=== PATIENT | female | born 1990 | race Caucasian/White ===

== ENCOUNTER 2020-11-28 07:06 | Emergency (ER) | payer MEDICAID ==
[2020-11-28] MEDS ORDERED: ONDANSETRON 4 MG/2 ML VIAL IVP STA (07:20)
[2020-11-28] MEDS ORDERED: KETOROLAC 15 MG/ML VIAL IVP STA (07:20)
[2020-11-28] MEDS ORDERED: SODIUM CHLORIDE 0.9% 1,000 ML IV STA ×2 (07:20→08:38)
[2020-11-28 07:34] LABS: BASOPHILS # (AUTO) 0.1 10^3/uL (0.0-0.1); BASOPHILS % (AUTO) 0.7 %; EOSINOPHILS # (AUTO) 0.2 10^3/uL (0.0-0.7); EOSINOPHILS % (AUTO) 2.2 %; HCT - HEMATOCRIT 39.1 % (37.0-47.0); HGB - HEMOGLOBIN 13.2 g/dL (12.0-16.0); LYMPHOCYTES # (AUTO) 2.6 10^3/uL (1.5-3.5); MEAN CORPUSCULAR HEMOGLOBIN 31.1 pg (27.0-31.0); MEAN CORPUSCULAR HGB CONC 33.8 g/dL (32.0-36.0); MEAN PLATELET VOLUME 11.1 fL (7.9-10.8); MONOCYTES # (AUTO) 0.5 10^3/uL (0.0-1.0); MONOCYTES % (AUTO) 6.5 %; NEUTROPHILS % (AUTO) 54.1 %; PLT - PLATELET COUNT 257 10^3/uL (130-450); RED BLOOD COUNT 4.25 10^6/uL (4.20-5.40); RED CELL DISTRIBUTION WIDTH 11.9 % (12.0-15.0); WHITE BLOOD COUNT 7.3 x10^3/uL (4.8-10.8)
[2020-11-28] MEDS ORDERED: MORPHINE 2 MG/ML CARPUJECT IVP STA (07:35)
--- NOTE | 2020-11-28 07:38 | ED Physician Documentation ---
History of Present Illness - Stated complaint Stated Complaint: VOMMITING/RT SIDE PX - Chief complaint Chief Complaint: Back Pain - History obtained from History obtained from: Patient, Family (mother) - Additonal information Additional information: 29-year-old woman with past medical history of 3 kidney stones presents with similar symptoms today to her past stones. She developed right flank pain that is sharp, severe, radiating to the right lower quadrant starting around midnight with associated nonbloody nonbilious nausea and vomiting. She also feels lightheaded. Pain is constant, sudden onset. also with chills. denies urinary sx. she has an iud Review of Systems Ten Systems: 10 systems reviewed and negative Constitutional: reports: Chills, Myalgias Cardiac: denies: Chest pain / pressure Respiratory: denies: Dyspnea GI: reports: Abdominal Pain, Nausea, Vomiting Musculoskeletal: reports: Back pain PD PAST MEDICAL HISTORY - Past Surgical History Past Surgical History: Yes HEENT: Tonsil/Adenoidectomy - Present Medications Home Medications: Ambulatory Orders Medication Instructions Recorded Confirmed Cefpodoxime Proxetil [Vantin] 100 mg PO Q12H #20 tablet 11/28/20 Ketorolac [Toradol] 10 mg PO Q6H PRN #30 tablet 11/28/20 Ondansetron Odt [Zofran Odt] 4 mg TL Q6H PRN #10 tablet 11/28/20 Tamsulosin [Flomax] 0.4 mg PO DAILY 14 Days #14 tab 11/28/20 - Allergies Allergies/Adverse Reactions: Allergies Allergy/AdvReac Type Severity Reaction Status Date / Time codeine AdvReac Nausea Verified 11/28/20 07:15 - Social History Does the pt smoke?: No Smoking Status: Never smoker Does the pt drink ETOH?: No Does the pt have substance abuse?: No - Immunizations Immunizations are current?: Yes - POLST Patient has POLST: No PD ED PE NORMAL - Vitals Vital signs reviewed: Yes - General General: Alert and oriented X 3, Well developed/nourished, Other (moderate distress, wiggling in bed) - HEENT HEENT: Atraumatic, PERRL, EOMI - Neck Neck: Supple, no meningeal sign - Cardiac Cardiac: RRR - Respiratory Respiratory: No respiratory distress, Clear bilaterally - Abdomen Abdomen: Non tender, Non distended, Other (discomfort to suprapubic palpation) - Back Back: Other (R CVA ttp) - Derm Derm: Normal color, Warm and dry - Extremities Extremities: No deformity - Neuro Neuro: Alert and oriented X 3 - Psych Psych: Normal mood, Normal affect Results - Vitals Vitals: Vital Signs - 24 hr 11/28/20 07:12 Temperature 36.0 C L Heart Rate 96 Respiratory 20 Rate Blood Pressure 140/113 H O2 Saturation 100 Oxygen O2 Source Room air - Labs Labs: Laboratory Tests 11/28/20 11/28/20 11/28/20 07:25 07:25 07:40 WBC 7.3 RBC 4.25 Hgb 13.2 Hct 39.1 MCV 92.0 MCH 31.1 H MCHC 33.8 RDW 11.9 L Plt Count 257 MPV 11.1 H Neut # (Auto) 4.0 Lymph # (Auto) 2.6 [place] # (Auto) 0.5 Eos # (Auto) 0.2 Baso # (Auto) 0.1 Absolute Nucleated RBC 0.00 Nucleated RBC % 0.0 Sodium 139 Potassium 3.8 Chloride 106 Carbon Dioxide 24 Anion Gap 9.0 BUN 9 Creatinine 0.8 Estimated GFR (MDRD) 86 L Glucose 143 H Calcium 9.0 Total Bilirubin 0.3 AST 22 ALT 19 Alkaline Phosphatase 67 Total Protein 7.9 Albumin 4.5 Globulin 3.4 Albumin/Globulin Ratio 1.3 Lipase 27 Urine Color YELLOW Urine Clarity HAZY Urine pH 7.0 Ur Specific [place] 1.025 Urine Protein NEGATIVE Urine Glucose (UA) NEGATIVE Urine Ketones NEGATIVE Urine Occult Blood LARGE H Urine Nitrite NEGATIVE Urine Bilirubin NEGATIVE Urine Urobilinogen 0.2 (NORMAL) Ur Leukocyte Esterase SMALL H Urine RBC TNTC H Urine WBC 4-5 Ur Squamous Epith Cells MANY Squamous H Urine Bacteria Moderate H Ur Microscopic Review INDICATED Urine Culture Comments NOT INDICATED Urine HCG, Qual 11/28/20 07:40 WBC RBC Hgb Hct MCV MCH MCHC RDW Plt Count MPV Neut # (Auto) Lymph # (Auto) [place] # (Auto) Eos # (Auto) Baso # (Auto) Absolute Nucleated RBC Nucleated RBC % Sodium Potassium Chloride Carbon Dioxide Anion Gap BUN Creatinine Estimated GFR (MDRD) Glucose Calcium Total Bilirubin AST ALT Alkaline Phosphatase Total Protein Albumin Globulin Albumin/Globulin Ratio Lipase Urine Color Urine Clarity Urine pH Ur Specific [place] Urine Protein Urine Glucose (UA) Urine Ketones Urine Occult Blood Urine Nitrite Urine Bilirubin Urine Urobilinogen Ur Leukocyte Esterase Urine RBC Urine WBC Ur Squamous Epith Cells Urine Bacteria Ur Microscopic Review Urine Culture Comments Urine HCG, Qual NEGATIVE Procedures - General procedure General procedure: Point of care ultrasound of the bilateral kidneys. Mild R hydronephrosis. L kidney normal. PD MEDICAL DECISION MAKING - ED course ED course: 29-year-old woman presents with recurrent kidney stones. Will evaluate kidney function, urinalysis, test, treat symptoms and reevaluate. Departure - Departure Clinical Impression: Kidney stone, UTI (urinary tract infection) Condition: Good Instructions: Kidney Stones Follow-Up: Kiesha Gray MD [Physician No Access] - Prescriptions: Tamsulosin [Flomax] 0.4 mg PO DAILY 14 Days #14 tab Ketorolac [Toradol] 10 mg PO Q6H PRN #30 tablet PRN Reason: Pain Cefpodoxime Proxetil [Vantin] 100 mg PO Q12H #20 tablet Ondansetron Odt [Zofran Odt] 4 mg TL Q6H PRN #10 tablet PRN Reason: Nausea / Vomiting Comments: You were seen in the emergency department for kidney stones. You had mild hydronephrosis on the right side, which means that your kidney has some backup of fluid related to the stone. You also had increased white blood cells on your urine sample which may be an indicator of urinary tract infection. We will send a urine culture to evaluate further and I would like you to take antibiotics until you follow-up with urology. Make sure that you call to make an appointment today. Return to the emergency department if you experience fevers, new or worsening symptoms or have other concerns.
[2020-11-28 07:47] LABS: ALBUMIN 4.5 g/dL (3.2-5.5); ALBUMIN/GLOBULIN RATIO 1.3 (1.0-2.2); BILIRUBIN,TOTAL 0.3 mg/dL (0.2-1.0); CREATININE 0.8 mg/dL (0.4-1.0); POTASSIUM 3.8 mmol/L (3.5-5.0); TOTAL PROTEIN 7.9 g/dL (6.7-8.2)
[2020-11-28 08:01] LABS: BILIRUBIN,URINE NEGATIVE (NEGATIVE); GLUCOSE, URINE (UA) NEGATIVE (NEGATIVE); KETONES,URINE (UA) NEGATIVE (NEGATIVE); LEUKOCYTE ESTERASE, URINE SMALL (NEGATIVE); NITRITE,URINE NEGATIVE (NEGATIVE); OCCULT BLOOD,URINE LARGE (NEGATIVE); PROTEIN,URINE NEGATIVE (NEGATIVE); UROBILINOGEN,URINE 0.2 (NORMAL) E.U./dL (NORMAL)
[2020-11-28] MEDS ORDERED: HYDROmorphone 1 MG/ML CARPUJECT IVP STA (08:01)
[2020-11-28 08:02] LABS: HCG UR QUAL NEGATIVE
[2020-11-28 08:15] LABS: BACTERIA,URINE Moderate /HPF (None Seen); CLARITY,URINE HAZY (CLEAR); RBC,URINE TNTC /HPF (0-5); SQUAMOUS EPITHELIAL CELL,UR MANY Squamous (<= Few)
[2020-11-28] MEDS ORDERED: ONDANSETRON ODT 4 MG TABLET TL STA (09:22)
[2020-11-28 10:26] VITALS: BP 119/65
== END 2020-11-28 10:12 | disposition home or self-care (01) ==
LOC: ED 07:06
DX: N20.0 Calculus of kidney (principal); N39.0 Urinary tract infection, site not specified
CPT/HCPCS: 36415; 80053; 81001; 81025; 83690; 85025; 87086; 96374; 96375; 99284; 99285; J1170; Q0162; 81003

== ENCOUNTER 2020-12-20 16:55 | Emergency (ER) | payer MEDICAID ==
[2020-12-20 17:19] LABS: BASOPHILS # (AUTO) 0.1 10^3/uL (0.0-0.1); BASOPHILS % (AUTO) 0.8 %; EOSINOPHILS # (AUTO) 0.1 10^3/uL (0.0-0.7); EOSINOPHILS % (AUTO) 1.2 %; HCT - HEMATOCRIT 38.1 % (37.0-47.0); HGB - HEMOGLOBIN 13.4 g/dL (12.0-16.0); LYMPHOCYTES # (AUTO) 3.2 10^3/uL (1.5-3.5); LYMPHOCYTES % (AUTO) 30.9 %; MEAN CORPUSCULAR HEMOGLOBIN 31.2 pg (27.0-31.0); MEAN CORPUSCULAR HGB CONC 35.2 g/dL (32.0-36.0); MEAN CORPUSCULAR VOLUME 88.8 fL (81.0-99.0); MEAN PLATELET VOLUME 11.5 fL (7.9-10.8); MONOCYTES # (AUTO) 0.6 10^3/uL (0.0-1.0); MONOCYTES % (AUTO) 6.1 %; NEUTROPHILS # (AUTO) 6.2 10^3/uL (1.5-6.6); NEUTROPHILS % (AUTO) 60.8 %; PLT - PLATELET COUNT 271 10^3/uL (130-450); RED BLOOD COUNT 4.29 10^6/uL (4.20-5.40); RED CELL DISTRIBUTION WIDTH 11.9 % (12.0-15.0); WHITE BLOOD COUNT 10.2 x10^3/uL (4.8-10.8)
[2020-12-20 17:31] LABS: ALBUMIN 4.8 g/dL (3.2-5.5); ALBUMIN/GLOBULIN RATIO 1.5 (1.0-2.2); BILIRUBIN,TOTAL 0.7 mg/dL (0.2-1.0); CALCIUM 9.2 mg/dL (8.5-10.3); CREATININE 0.7 mg/dL (0.4-1.0); POTASSIUM 3.4 mmol/L (3.5-5.0); TOTAL PROTEIN 7.9 g/dL (6.7-8.2)
[2020-12-20] MEDS ORDERED: ONDANSETRON 4 MG/2 ML VIAL IVP STA ×2 (17:38→20:07)
[2020-12-20] MEDS ORDERED: KETOROLAC 30 MG/ML VIAL IVP STA (17:38)
[2020-12-20] MEDS ORDERED: MORPHINE 2 MG/ML CARPUJECT IVP STA ×2 (17:38→20:07)
--- NOTE | 2020-12-20 17:39 | ED Physician Documentation ---
PD HPI ABD PAIN - Stated complaint Stated Complaint: LOW LT QUADRANT PX/NAUSEA - Chief complaint Chief Complaint: Abd Pain - History obtained from History obtained from: Patient - Additional information Additional information: 29-year-old woman with recurrent renal colic presents with severe left-sided back pain today. Previous episodes of renal colic were on the right. Last CT she says was about a year ago. Review of Systems Ten Systems: 10 systems reviewed and negative Constitutional: reports: Reviewed and negative Eyes: reports: Reviewed and negative PD PAST MEDICAL HISTORY - Past Medical History Cardiovascular: None Respiratory: None Neuro: None Endocrine/Autoimmune: None GI: None TRANSITION RN: None : Kidney stones HEENT: None Psych: None Musculoskeletal: None Derm: None - Past Surgical History Past Surgical History: Yes HEENT: Tonsil/Adenoidectomy - Present Medications Home Medications: Ambulatory Orders Medication Instructions Recorded Confirmed Cefpodoxime Proxetil [Vantin] 100 mg PO Q12H #20 tablet 11/28/20 Ketorolac [Toradol] 10 mg PO Q6H PRN #30 tablet 11/28/20 Ondansetron Odt [Zofran Odt] 4 mg TL Q6H PRN #10 tablet 11/28/20 Oxycodone HCl/Acetaminophen 1 each PO Q4H PRN #20 tablet 11/28/20 [Percocet 10-325 mg Tablet] Tamsulosin [Flomax] 0.4 mg PO DAILY 14 Days #14 tab 11/28/20 Ondansetron Odt [Zofran] 4 mg TL Q6H PRN #10 tablet 12/20/20 Oxycodone HCl/Acetaminophen 1 - 2 each PO Q6H PRN #14 tablet 12/20/20 [Percocet 5-325 mg Tablet] Tamsulosin [Flomax] 0.4 mg PO DAILY #14 cap 12/20/20 - Allergies Allergies/Adverse Reactions: Allergies Allergy/AdvReac Type Severity Reaction Status Date / Time diphenhydramine Allergy Itching Verified 12/20/20 17:02 [From Benadryl] metoclopramide [From Reglan] Allergy Anxiety Verified 12/20/20 17:02 codeine AdvReac Nausea Verified 11/28/20 07:15 - Social History Does the pt smoke?: No Smoking Status: Never smoker Does the pt drink ETOH?: No Does the pt have substance abuse?: No - Immunizations Immunizations are current?: Yes - POLST Patient has POLST: No PD ED PE NORMAL - Vitals Vital signs reviewed: Yes - General General: Other (She is writhing and moaning in pain.) - HEENT HEENT: PERRL, EOMI - Neck Neck: Supple, no meningeal sign, No bony TTP - Cardiac Cardiac: RRR, No murmur - Respiratory Respiratory: No respiratory distress, Clear bilaterally - Abdomen Abdomen: Other (Left flank and left-sided diffuse abdominal tenderness without surgical signs) - Derm Derm: Normal color, No rash - Extremities Extremities: No edema, No calf tenderness / cord - Neuro Neuro: Alert and oriented X 3, Normal speech Results - Vitals Vitals: Vital Signs - 24 hr 12/20/20 12/20/20 17:02 19:03 Temperature 36.6 C 36.8 C Heart Rate 88 74 Respiratory 18 14 Rate Blood Pressure 146/81 H 114/69 O2 Saturation 98 100 Oxygen O2 Source Room air - Labs Labs: Laboratory Tests 12/20/20 12/20/20 12/20/20 17:13 17:13 19:57 WBC 10.2 RBC 4.29 Hgb 13.4 Hct 38.1 MCV 88.8 MCH 31.2 H MCHC 35.2 RDW 11.9 L Plt Count 271 MPV 11.5 H Neut # (Auto) 6.2 Lymph # (Auto) 3.2 [place] # (Auto) 0.6 Eos # (Auto) 0.1 Baso # (Auto) 0.1 Absolute Nucleated RBC 0.00 Nucleated RBC % 0.0 Sodium 134 L Potassium 3.4 L Chloride 101 Carbon Dioxide 22 Anion Gap 11.0 BUN 10 Creatinine 0.7 Estimated GFR (MDRD) 100 Glucose 99 Calcium 9.2 Total Bilirubin 0.7 AST 20 ALT 15 Alkaline Phosphatase 62 Total Protein 7.9 Albumin 4.8 Globulin 3.1 Albumin/Globulin Ratio 1.5 Lipase 24 Urine Color YELLOW Urine Clarity HAZY Urine pH 8.5 H Ur Specific [place] 1.020 Urine Protein TRACE Urine Glucose (UA) NEGATIVE Urine Ketones 15 H Urine Occult Blood LARGE H Urine Nitrite NEGATIVE Urine Bilirubin NEGATIVE Urine Urobilinogen 0.2 (NORMAL) Ur Leukocyte Esterase TRACE H Urine RBC TNTC H Urine WBC 0-3 Ur Squamous Epith Cells RARE Squamous Urine Bacteria Few Urine Mucus Few Strands Ur Microscopic Review INDICATED Urine Culture Comments INDICATED Urine HCG, Qual NEGATIVE PD MEDICAL DECISION MAKING - ED course ED course: CT KUB demonstrates left proximal ureteral stone measuring 3.5 x 5 mm with moderate left hydronephrosis. Additionally a 2 mm nonobstructing left renal calculus. She also has partially imaged asymmetric left breast density. This was discussed with the patient. The breast density issue was known to her, scarring from prior mastitis and she had already been told by specialist that no further follow-up was necessary. This young lady has recurrent renal colic. Although it is never been on the left. Found to have a 5 mm stone on the left, proximal ureter with some signs of obstruction. Urinalysis shows small leukocyte esterase, given the clinical c ircumstances I do not think this is consistent with UTI. Discussed that she needs to return immediately if she runs a fever or if urine culture is positive. I am prescribing a short course of short-acting opioid pain medication for this patient. I have reviewed the patients [employer] and no concerning findings were noted. I have discussed that the opioids are for short term therapy only, and will not be refilled from the ED. Departure - Departure Disposition: Home, Self Care Clinical Impression: Renal colic on left side Condition: Stable Record reviewed to determine appropriate education?: Yes Instructions: ED Stone Renal W Colic Prescriptions: Tamsulosin [Flomax] 0.4 mg PO DAILY #14 cap Oxycodone HCl/Acetaminophen [Percocet 5-325 mg Tablet] 1 - 2 each PO Q6H PRN #14 tablet PRN Reason: pain Ondansetron Odt [Zofran] 4 mg TL Q6H PRN #10 tablet PRN Reason: Nausea / Vomiting Comments: It is imperative that she not get or try to become or even think of while being on Flomax. It is not a good medication to take if you are . Follow-up with your urologist, calling Wednesday for an appointment. Return for new or worsening symptoms. Drink plenty of fluids. I am prescribing a short course of narcotic pain medication for you. These are potentially dangerous and addictive medications that should be used carefully. These medications may constipate you. Take an [id number] stool softener (docusate) twice daily with plenty of water while taking these medications. If you go 24 hours without a bowel movement, take tezp-[id number] miralax, per package instructions. Do not drink or drive while taking these medications. If you received narcotic or sedating medications while in the emergency department, do not drive for 24 hours. Store this medication in a safe, secure place and out of reach of children. It is a violation of federal law to give or sell this medication to another person or to use in a manner other than prescribed. The ED will not refill narcotic prescriptions, including prescriptions lost or stolen. To dispose of unwanted medications: 1. [facility] at [address] in [place] has a medication drop box. They accept prescription medications (in pill form) Wednesday through Wednesday 9:00 a.m. to 5:00 p.m. 2. [facility] accepts prescription medications (in pill form only) for disposal year round. Call for more information. 3. Contact the [facility] for the next [facility] sponsored prescription drug collection event. , [phone], or [phone]; Note that many narcotic pain relievers also contain Tylenol/acetaminophen. Please ensure that your total dose of acetaminophen from all sources does not exceed 3 g (3000 mg) per day.
--- NOTE | 2020-12-20 18:33 | CT Report ---
PROCEDURE: Abdomen/Pelvis WO INDICATIONS: L flank pain TECHNIQUE: Noncontrast 5 mm thick sections acquired from the diaphragms to the symphysis. 5 mm coronal and sagi ttal reformats were then performed. For radiation dose reduction, the following was used: automated exposure control, adjustment of mA and/or kV according to patient size. COMPARISON: None. FINDINGS: Image quality: Excellent. ABDOMEN: Lung bases: Lung bases are clear. Heart size is normal. Solid organs: Liver and spleen are normal in size. Gallbladder unremarkable. Pancreas is normal in contours. No adrenal nodules. There is a 3.5 x 5 mm calculus noted in the proximal left ureter resulting in moderate left hydroneph rosis. Additional nonobstructing left renal calculus measures 2 mm. No calculi noted on the right. Peritoneum and bowel: Unenhanced bowel loops demonstrate normal wall thickness and caliber. No free fluid or air. Nodes and vessels: No retroperitoneal or mesenteric adenopathy by size criteria. Aorta and inferior vena cava are normal in caliber. Miscellaneous: No ventral hernias. There is asymmetric left parenchymal density in the partially im aged breasts. PELVIS: Genitourinary: Bladder wall thickness is normal. Intrauterine device noted. Miscellaneous: No inguinal hernias or adenopathy. Bones: No suspicious bony lesions. No vertebral body compression fractures. IMPRESSION: 1. Small 3.5 x 5 mm calculus in the proximal left ureter results in moderate left hydronephrosis. 2. Additional 2 mm nonobstructing left renal calculus. 3. Incidental partially imaged asymmetric left breast density can be correlated with ultrasound and/o r mammography. Reviewed by: Kishor Mejia MD on 12/20/2020 5:32 PM AKDT Approved by: Kishor Mejia MD on 12/20/2020 5:32 PM AKDT Station ID: [id number]
[2020-12-20] MEDS ORDERED: LACTATED RINGERS 1,000 ML IV STA (18:39)
[2020-12-20] MEDS ORDERED: SODIUM CHLORIDE 0.9% 1,000 ML IV STA (18:39)
[2020-12-20 20:08] LABS: BILIRUBIN,URINE NEGATIVE (NEGATIVE); GLUCOSE, URINE (UA) NEGATIVE (NEGATIVE); KETONES,URINE (UA) 15 mg/dL (NEGATIVE); LEUKOCYTE ESTERASE, URINE TRACE (NEGATIVE); NITRITE,URINE NEGATIVE (NEGATIVE); OCCULT BLOOD,URINE LARGE (NEGATIVE); PH,URINE 8.5 PH (5.0-7.5); PROTEIN,URINE TRACE mg/dL (NEGATIVE); UROBILINOGEN,URINE 0.2 (NORMAL) E.U./dL (NORMAL)
[2020-12-20 20:10] LABS: CLARITY,URINE HAZY (CLEAR); HCG UR QUAL NEGATIVE
[2020-12-20 20:20] LABS: BACTERIA,URINE Few /HPF (None Seen); RBC,URINE TNTC /HPF (0-5); SQUAMOUS EPITHELIAL CELL,UR RARE Squamous (<= Few); WBC,URINE 0-3 /HPF (0-5)
[2020-12-20 20:21] LABS: MUCUS,URINE Few Strands
[2020-12-20] MEDS ORDERED: oxyCODONE/ACET 5/325 Prepack 4 PO STA (20:38)
[2020-12-20] MEDS ORDERED: TAMSULOSIN 0.4 MG CAPSULE PO STA (20:38)
[2020-12-20] MEDS ORDERED: ONDANSETRON ODT 4 MG Prepack 2 TL STA (20:38)
[2020-12-20 21:01] VITALS: BP 115/78
--- NOTE | 2020-12-22 16:05 | ED Physician Documentation ---
ED Addendum - Addendum Addendum: 12/22/20 16:04 Culture reviewed. Given that the urine culture was positive with an obstructing stone I asked the nurse to call her. She either needs to come back or go to [facility] for reevaluation.
== END 2020-12-20 21:01 | disposition home or self-care (01) ==
LOC: ED 16:55
DX: N13.6 Pyonephrosis (principal); N20.0 Calculus of kidney; N64.89 Other specified disorders of breast
CPT/HCPCS: 36415; 74176; 80053; 81001; 81025; 83690; 85025; 87086; 96374; 96375; 96376; 99283; 99284; A9270; J7120; 81003

== ENCOUNTER 2022-07-30 04:02 | Emergency (ER) | payer MEDICAID ==
[2022-07-30] MEDS ORDERED: SODIUM CHLORIDE 0.9% 1,000 ML IV STA (04:27)
[2022-07-30] MEDS ORDERED: ONDANSETRON 4 MG/2 ML VIAL IVP STA (04:27)
[2022-07-30] MEDS ORDERED: KETOROLAC 15 MG/ML VIAL IVP STA (04:28)
[2022-07-30 04:32] LABS: BILIRUBIN,URINE NEGATIVE (NEGATIVE); GLUCOSE, URINE (UA) NEGATIVE (NEGATIVE); KETONES,URINE (UA) TRACE mg/dL (NEGATIVE); LEUKOCYTE ESTERASE, URINE NEGATIVE (NEGATIVE); NITRITE,URINE NEGATIVE (NEGATIVE); OCCULT BLOOD,URINE LARGE (NEGATIVE); PROTEIN,URINE 30 mg/dL (NEGATIVE); UROBILINOGEN,URINE 0.2 (NORMAL) E.U./dL (NORMAL)
[2022-07-30 04:34] LABS: BASOPHILS # (AUTO) 0.1 10^3/uL (0.0-0.1); BASOPHILS % (AUTO) 0.6 %; EOSINOPHILS # (AUTO) 0.1 10^3/uL (0.0-0.7); EOSINOPHILS % (AUTO) 0.8 %; HCT - HEMATOCRIT 39.5 % (37.0-47.0); HGB - HEMOGLOBIN 13.1 g/dL (12.0-16.0); LYMPHOCYTES # (AUTO) 2.9 10^3/uL (1.5-3.5); LYMPHOCYTES % (AUTO) 30.6 %; MEAN CORPUSCULAR HGB CONC 33.2 g/dL (32.0-36.0); MEAN CORPUSCULAR VOLUME 90.4 fL (81.0-99.0); MEAN PLATELET VOLUME 11.3 fL (7.9-10.8); MONOCYTES # (AUTO) 0.5 10^3/uL (0.0-1.0); MONOCYTES % (AUTO) 5.1 %; NEUTROPHILS % (AUTO) 62.6 %; PLT - PLATELET COUNT 261 10^3/uL (130-450); RED BLOOD COUNT 4.37 10^6/uL (4.20-5.40); RED CELL DISTRIBUTION WIDTH 12.1 % (12.0-15.0); WHITE BLOOD COUNT 9.6 x10^3/uL (4.8-10.8)
[2022-07-30 04:39] LABS: CLARITY,URINE CLEAR (CLEAR)
[2022-07-30 04:40] LABS: BACTERIA,URINE Few /HPF (None Seen); HCG UR QUAL NEGATIVE; MUCUS,URINE Moderate Strands; RBC,URINE TNTC /HPF (0-5); SQUAMOUS EPITHELIAL CELL,UR MANY Squamous (<= Few); WBC,URINE 0-3 /HPF (0-5)
[2022-07-30 04:47] LABS: ALBUMIN 4.1 g/dL (3.2-5.5); ALBUMIN/GLOBULIN RATIO 1.1 (1.0-2.2); BILIRUBIN,TOTAL 0.8 mg/dL (0.2-1.0); CREATININE 0.7 mg/dL (0.4-1.0); POTASSIUM 3.8 mmol/L (3.5-5.0); TOTAL PROTEIN 7.7 g/dL (6.7-8.2)
[2022-07-30] MEDS ORDERED: HYDROmorphone 2 MG TABLET PO STA (05:00)
--- NOTE | 2022-07-30 05:05 | ED Physician Documentation ---
History of Present Illness - Stated complaint Stated Complaint: LT SIDE PX - Chief complaint Chief Complaint: Abd Pain - History obtained from History obtained from: Patient - Additonal information Additional information: 31yF with pmh kidney stones p/w L flank pain waking her from sleep at 3am with associated nbnb n/v. denies fever or urinary sx. 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 : Kidney stones HEENT: None Psych: None Musculoskeletal: None Derm: None - Past Surgical History Past Surgical History: Yes HEENT: Tonsil/Adenoidectomy - Present Medications Home Medications: Ambulatory Orders Medication Instructions Recorded Confirmed Cefpodoxime Proxetil [Vantin] 100 mg PO Q12H #20 tablet 11/28/20 Ketorolac [Toradol] 10 mg PO Q6H PRN #30 tablet 11/28/20 Ondansetron Odt [Zofran Odt] 4 mg TL Q6H PRN #10 tablet 11/28/20 Oxycodone HCl/Acetaminophen 1 each PO Q4H PRN #20 tablet 11/28/20 [Percocet 10-325 mg Tablet] Tamsulosin [Flomax] 0.4 mg PO DAILY 14 Days #14 tab 11/28/20 Ondansetron Odt [Zofran] 4 mg TL Q6H PRN #10 tablet 12/20/20 Oxycodone HCl/Acetaminophen 1 - 2 each PO Q6H PRN #14 tablet 12/20/20 [Percocet 5-325 mg Tablet] Tamsulosin [Flomax] 0.4 mg PO DAILY #14 cap 12/20/20 - Allergies Allergies/Adverse Reactions: Allergies Allergy/AdvReac Type Severity Reaction Status Date / Time diphenhydramine Allergy Itching Verified 12/20/20 17:02 [From Benadryl] metoclopramide [From Reglan] Allergy Anxiety Verified 12/20/20 17:02 codeine AdvReac Nausea Verified 11/28/20 07:15 - Social History Does the pt smoke?: No Smoking Status: Never smoker Does the pt drink ETOH?: No Does the pt have substance abuse?: No - Immunizations Immunizations are current?: Yes - POLST Patient has POLST: No PD ED PE NORMAL - Vitals Vital signs reviewed: Yes - General General: Alert and oriented X 3, No acute distress, Well developed/nourished - HEENT HEENT: Atraumatic, PERRL, EOMI - Back Back: Other (L CVA ttp) - Derm Derm: Normal color, Warm and dry Results - Vitals Vitals: Vital Signs - 24 hr 07/30/22 04:09 Temperature 37.2 C Heart Rate 93 Respiratory 19 Rate Blood Pressure 131/88 H O2 Saturation 100 Oxygen O2 Source Room air - Labs Labs: Laboratory Tests 07/30/22 07/30/22 07/30/22 04:18 04:18 04:26 WBC 9.6 RBC 4.37 Hgb 13.1 Hct 39.5 MCV 90.4 MCH 30.0 MCHC 33.2 RDW 12.1 Plt Count 261 MPV 11.3 H Neut # (Auto) 6.0 Lymph # (Auto) 2.9 [place] # (Auto) 0.5 Eos # (Auto) 0.1 Baso # (Auto) 0.1 Absolute Nucleated RBC 0.00 Nucleated RBC % 0.0 Sodium Potassium Chloride Carbon Dioxide Anion Gap BUN Creatinine Estimated GFR (MDRD) Glucose Calcium Total Bilirubin AST ALT Alkaline Phosphatase Total Protein Albumin Globulin Albumin/Globulin Ratio Lipase Urine Color YELLOW Urine Clarity CLEAR Urine pH 6.0 Ur Specific [place] >=1.030 H Urine Protein 30 H Urine Glucose (UA) NEGATIVE Urine Ketones TRACE Urine Occult Blood LARGE H Urine Nitrite NEGATIVE Urine Bilirubin NEGATIVE Urine Urobilinogen 0.2 (NORMAL) Ur Leukocyte Esterase NEGATIVE Urine RBC TNTC H Urine WBC 0-3 Ur Squamous Epith Cells MANY Squamous H Urine Bacteria Few Urine Mucus Moderate Strands Ur Microscopic Review INDICATED Urine Culture Comments NOT INDICATED Urine HCG, Qual NEGATIVE 07/30/22 04:26 WBC RBC Hgb Hct MCV MCH MCHC RDW Plt Count MPV Neut # (Auto) Lymph # (Auto) [place] # (Auto) Eos # (Auto) Baso # (Auto) Absolute Nucleated RBC Nucleated RBC % Sodium 136 Potassium 3.8 Chloride 103 Carbon Dioxide 22 Anion Gap 11.0 BUN 10 Creatinine 0.7 Estimated GFR (MDRD) 99 Glucose 106 H Calcium 9.0 Total Bilirubin 0.8 AST 16 ALT 11 Alkaline Phosphatase 45 Total Protein 7.7 Albumin 4.1 Globulin 3.6 Albumin/Globulin Ratio 1.1 Lipase 26 Urine Color Urine Clarity Urine pH Ur Specific [place] Urine Protein Urine Glucose (UA) Urine Ketones Urine Occult Blood Urine Nitrite Urine Bilirubin Urine Urobilinogen Ur Leukocyte Esterase Urine RBC Urine WBC Ur Squamous Epith Cells Urine Bacteria Urine Mucus Ur Microscopic Review Urine Culture Comments Urine HCG, Qual PD Medical Decision Making - ED course ED course: 31yF p/w hematuria, flank pain c/w prior episodes of renal stones. CBC and abdominal panel ordered with no evidence of renal impairment. u/a negative for infection. POCUS at bedside with mild to minimal L hydronephrosis. Patient has pain and nausea medicine at home. Plan to f/u with outpatient urology. return precautions given. Departure - Departure Clinical Impression: Kidney stones Condition: Good Instructions: Kidney Stones Follow-Up: Kiesha Gray MD [Physician No Access] - Comments: You were seen in the emergency department for kidney stones. Please follow-up with outpatient urology. Return to the emergency department for any new or worsening symptoms or other concerns.
[2022-07-30 06:19] VITALS: BP 113/66
== END 2022-07-30 06:19 | disposition home or self-care (01) ==
LOC: ED 04:02
DX: N20.0 Calculus of kidney (principal)
CPT/HCPCS: 36415; 80053; 81001; 81025; 83690; 85025; 96374; 96375; 99282; 99284; A9270; 81003; 87086

== ENCOUNTER 2022-12-25 05:41 | Emergency (ER) | payer MEDICAID ==
[2022-12-25 06:13] VITALS: BP 126/85
[2022-12-25 06:28] LABS: BILIRUBIN,URINE NEGATIVE (NEGATIVE); GLUCOSE, URINE (UA) NEGATIVE (NEGATIVE); KETONES,URINE (UA) NEGATIVE (NEGATIVE); LEUKOCYTE ESTERASE, URINE SMALL (NEGATIVE); NITRITE,URINE NEGATIVE (NEGATIVE); OCCULT BLOOD,URINE LARGE (NEGATIVE); PROTEIN,URINE 30 mg/dL (NEGATIVE); UROBILINOGEN,URINE 0.2 (NORMAL) E.U./dL (NORMAL)
[2022-12-25 06:30] LABS: CLARITY,URINE HAZY (CLEAR); HCG UR QUAL NEGATIVE
[2022-12-25 06:35] LABS: RBC,URINE TNTC /HPF (0-5); SQUAMOUS EPITHELIAL CELL,UR RARE Squamous (<= Few)
[2022-12-25 06:36] LABS: BACTERIA,URINE Few /HPF (None Seen)
--- NOTE | 2022-12-25 06:56 | ED Physician Documentation ---
PD HPI FEMALE - Stated complaint Stated Complaint: FEMALE - Chief complaint Chief Complaint: UTI - History obtained from History obtained from: Patient - History of Present Illness Timing - onset: Yesterday Timing - duration: Days (1) Timing - details: Abrupt onset, Still present Associated symptoms: Back pain, Dysuria, Urinary frequency. No: Fever, Vaginal discharge, Hematuria Contributing factors: No: , Exposed to STD Similar symptoms before: Diagnosis (similar to prior UTIs though has had some episodes of interstitial cystitis in the past without infection.) Review of Systems Constitutional: denies: Fever, Chills GI: reports: Nausea. denies: Vomiting, Diarrhea : reports: Dysuria, Frequency. 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 : Kidney stones HEENT: None Psych: None Musculoskeletal: None Derm: None - Past Surgical History Past Surgical History: Yes HEENT: Tonsil/Adenoidectomy - Present Medications Home Medications: Ambulatory Orders Medication Instructions Recorded Confirmed Fluconazole [Diflucan] 150 mg PO ONCE #1 tablet 12/25/22 Norethindrone-E.estradiol-Iron 1 each PO DAILY 12/25/22 12/25/22 [Junel Fe 24 Tablet] Phenazopyridine HCl [Pyridium] 100 mg PO TID PRN #15 tablet 12/25/22 Sulfamethox/Trimeth 800/160 1 each PO BID #12 tablet 12/25/22 [Bactrim Ds 800/160] oxyBUTYnin chloride [Oxybutynin 5 mg PO TID PRN 12/25/22 12/25/22 Chloride] - Allergies Allergies/Adverse Reactions: Allergies Allergy/AdvReac Type Severity Reaction Status Date / Time diphenhydramine Allergy Itching Verified 12/25/22 06:13 [From Benadryl] metoclopramide [From Reglan] Allergy Anxiety Verified 12/25/22 06:13 codeine AdvReac Nausea Verified 12/25/22 06:13 - Social History Does the pt smoke?: No Smoking Status: Never smoker Does the pt drink ETOH?: No Does the pt have substance abuse?: No - Immunizations Immunizations are current?: Yes - POLST Patient has POLST: No PD ED PE NORMAL - Vitals Vital signs reviewed: Yes - General General: Alert and oriented X 3, No acute distress, Well developed/nourished - Abdomen Abdomen: Soft, Non tender - Back Back: No CVA TTP - Derm Derm: Normal color, Warm and dry - Neuro Neuro: Alert and oriented X 3 Results - Vitals Vitals: Vital Signs - 24 hr 12/25/22 06:04 Temperature 36.1 C L Heart Rate 87 Respiratory 20 Rate Blood Pressure 126/85 H O2 Saturation 100 Oxygen O2 Source Room air - Labs Labs: Laboratory Tests 12/25/22 06:00 Urine Color YELLOW Urine Clarity HAZY Urine pH 6.0 Ur Specific Raysal 1.010 Urine Protein 30 H Urine Glucose (UA) NEGATIVE Urine Ketones NEGATIVE Urine Occult Blood LARGE H Urine Nitrite NEGATIVE Urine Bilirubin NEGATIVE Urine Urobilinogen 0.2 (NORMAL) Ur Leukocyte Esterase SMALL H Urine RBC TNTC H Urine WBC 6-10 H Ur Squamous Epith Cells RARE Squamous Urine Bacteria Few Ur Microscopic Review INDICATED Urine Culture Comments INDICATED Urine HCG, Qual NEGATIVE PD Medical Decision Making - ED course Complexity details: considered differential (UTi symptoms and UA is consistent with UTI. Has had interstitial cystitis in the past. Current UA would suggest actual infection at this time. Pending culture. ), d/w patient Departure - Departure Disposition: 01 Home, Self Care Clinical Impression: Urinary tract infection, Dysuria Condition: Stable Record reviewed to determine appropriate education?: Yes Instructions: ED UTI Cystitis Female Prescriptions: Sulfamethox/Trimeth 800/160 [Bactrim Ds 800/160] 1 each PO BID #12 tablet Fluconazole [Diflucan] 150 mg PO ONCE #1 tablet Phenazopyridine HCl [Pyridium] 100 mg PO TID PRN #15 tablet PRN Reason: Abdominal Pain Comments: Your urine test here does look consistent with infection. You can still treat the spasm and inflammatory components. Stay well-hydrated. Continue with the oxybutynin for spasm. Add phenazopyridine to help with discomfort of the bladder and urethra. Also an anti-inflammatory such as ibuprofen 2-3 times daily for the next few days. We will also add Bactrim DS antibiotic twice daily for the next 6 days. I sent these prescriptions to the [facility] pharmacy. The urine culture will result in a couple of days and we will see if the results of that are consistent with infection still in if we need to change the antibiotics based on the germ and the sensitivities. We will call you if we need to change the antibiotic. Discharge Date/Time: 12/25/22 07:42
[2022-12-25] MEDS ORDERED: IBUPROFEN 600 MG TABLET PO STA (07:18)
[2022-12-25] MEDS ORDERED: PHENAZOPYRIDINE 100 MG TABLET PO STA (07:18)
[2022-12-25] MEDS ORDERED: SULFAMETH/TRIMETH DS 800/160 MG TABLET PO STA (07:18)
--- NOTE | 2022-12-28 03:39 | MISCELLANEOUS PROVIDER NOTE ---
Miscellaneous Provider Note - - Note: 03:38 AM Culture and sensitivity report reviewed. The patient was discharged home on Bactrim. Urine analysis demonstrates E. coli which is resistant to Bactrim. I have E prescribed Macrobid and sent this prescription to [facility] which is listed on the patient's chart. We will have charge nurse in a.m. I called patient to discuss results and new prescription.
== END 2022-12-25 07:42 | disposition home or self-care (01) ==
LOC: ED 05:41
DX: N39.0 Urinary tract infection, site not specified (principal); B96.20 Unspecified Escherichia coli [E. coli] as the cause of diseases classified elsewhere
CPT/HCPCS: 81001; 81025; 87077; 87086; 87181; 99283; A9270; 81003

== ENCOUNTER 2024-01-24 19:46 | Emergency (ER) | payer MEDICAID ==
[2024-01-24 20:02] VITALS: BP 126/78; O2SAT 100
[2024-01-24 20:28] LABS: BASOPHILS % (AUTO) 0.3 %; EOSINOPHILS % (AUTO) 0.1 %; HCT - HEMATOCRIT 35.7 % (37.0-47.0); HGB - HEMOGLOBIN 12.1 g/dL (12.0-16.0); LYMPHOCYTES # (AUTO) 0.5 10^3/uL (1.5-3.5); LYMPHOCYTES % (AUTO) 6.6 %; MEAN CORPUSCULAR HEMOGLOBIN 30.5 pg (27.0-31.0); MEAN CORPUSCULAR HGB CONC 33.9 g/dL (32.0-36.0); MEAN CORPUSCULAR VOLUME 89.9 fL (81.0-99.0); MONOCYTES # (AUTO) 0.5 10^3/uL (0.0-1.0); MONOCYTES % (AUTO) 6.9 %; NEUTROPHILS # (AUTO) 6.2 10^3/uL (1.5-6.6); PLT - PLATELET COUNT 189 10^3/uL (130-450); RED BLOOD COUNT 3.97 10^6/uL (4.20-5.40); RED CELL DISTRIBUTION WIDTH 12.5 % (12.0-15.0); WHITE BLOOD COUNT 7.3 x10^3/uL (4.8-10.8)
--- NOTE | 2024-01-24 20:29 | ED Physician Documentation ---
History of Present Illness - Stated complaint Stated Complaint: - Chief complaint Chief Complaint: Abd Pain - History obtained from History obtained from: Patient, Family - History of Present Illness Timing: Today Pain level max: 5 Pain level now: 5 - Additonal information Additional information: Patient is a 33-year-old female, 2 para 1, approximately 18 weeks , is followed by OB and [place]. She states that she has had rhinorrhea, cough and congestion. Body aches. Bilateral flank pain. Nausea and vomiting. Nothing makes it better or worse. She takes Zofran at home. No vaginal bleeding or discharge. No pelvic pain or cramping. Review of Systems Constitutional: reports: Fever, Chills Nose: denies: Rhinorrhea / runny nose, Congestion GI: reports: Nausea, Vomiting. 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 HEENT: Tonsil/Adenoidectomy - Present Medications Home Medications: Ambulatory Orders Medication Instructions Recorded Confirmed Fluconazole [Diflucan] 150 mg PO ONCE #1 tablet 12/25/22 Norethindrone-E.estradiol-Iron 1 each PO DAILY 12/25/22 12/25/22 [Junel Fe 24 Tablet] Phenazopyridine HCl [Pyridium] 100 mg PO TID PRN #15 tablet 12/25/22 Sulfamethox/Trimeth 800/160 1 each PO BID #12 tablet 12/25/22 [Bactrim Ds 800/160] oxyBUTYnin chloride [Oxybutynin 5 mg PO TID PRN 12/25/22 12/25/22 Chloride] Nitrofurantoin [Macrobid] 1 cap PO BID #10 cap 12/28/22 - Allergies Allergies/Adverse Reactions: Allergies Allergy/AdvReac Type Severity Reaction Status Date / Time diphenhydramine Allergy Itching Verified 01/24/24 19:58 [From Benadryl] metoclopramide [From Reglan] Allergy Anxiety Verified 01/24/24 19:58 codeine AdvReac Nausea Verified 01/24/24 19:58 hydromorphone [From Dilaudid] AdvReac Nausea Verified 01/24/24 19:58 - Social History Does the pt smoke?: No Smoking Status: Never smoker Does the pt drink ETOH?: No Does the pt have substance abuse?: No - Immunizations Immunizations are current?: Yes - POLST Patient has POLST: No PD ED PE NORMAL - Vitals Vital signs reviewed: Yes - General General: Alert and oriented X 3, No acute distress - HEENT HEENT: PERRL, Moist mucous membranes - Neck Neck: Supple, no meningeal sign - Cardiac Cardiac: RRR, Strong equal pulses - Respiratory Respiratory: No respiratory distress, Clear bilaterally - Abdomen Abdomen: Soft, Non tender, Non distended - Derm Derm: Warm and dry, No rash - Extremities Extremities: No edema, No calf tenderness / cord - Neuro Neuro: Alert and oriented X 3 - Psych Psych: Normal mood, Normal affect Results - Vitals Vitals: Vital Signs - 24 hr 01/24/24 19:51 Temperature 38.2 C H Heart Rate 118 H Respiratory 19 Rate Blood Pressure 126/78 O2 Saturation 100 Oxygen O2 Source Room air - Labs Labs: Laboratory Tests 01/24/24 01/24/24 01/24/24 20:00 20:05 20:19 WBC 7.3 RBC 3.97 L Hgb 12.1 Hct 35.7 L MCV 89.9 MCH 30.5 MCHC 33.9 RDW 12.5 Plt Count 189 MPV 11.0 H Neut # (Auto) 6.2 Lymph # (Auto) 0.5 L Sabine # (Auto) 0.5 Eos # (Auto) 0.0 Baso # (Auto) 0.0 Absolute Nucleated RBC 0.00 Nucleated RBC % 0.0 Sodium Potassium Chloride Carbon Dioxide Anion Gap BUN Creatinine Estimated GFR (MDRD) Glucose Calcium Total Bilirubin AST ALT Alkaline Phosphatase Total Protein Albumin Globulin Albumin/Globulin Ratio Lipase Urine Color YELLOW Urine Clarity CLEAR Urine pH 6.5 Ur Specific Bailey 1.015 Urine Protein NEGATIVE Urine Glucose (UA) NEGATIVE Urine Ketones NEGATIVE Urine Occult Blood NEGATIVE Urine Nitrite NEGATIVE Urine Bilirubin NEGATIVE Urine Urobilinogen 0.2 (NORMAL) Ur Leukocyte Esterase NEGATIVE Ur Microscopic Review NOT INDICATED Urine Culture Comments NOT INDICATED Nasal Adenovirus (PCR) NOT DETECTED Nasal B. parapertussis DNA (PCR) NOT DETECTED Nasal Coronavir 229E PCR NOT DETECTED Nasal Coronavir HKU1 PCR NOT DETECTED Nasal Coronavir NL63 PCR NOT DETECTED Nasal Coronavir OC43 PCR NOT DETECTED Nasal Enterovir/Rhinovir PCR NOT DETECTED Nasal Influenza B PCR NOT DETECTED Nasal Influenza A PCR NOT DETECTED Nasal Parainfluen 1 PCR NOT DETECTED Nasal Parainfluen 2 PCR NOT DETECTED Nasal Parainfluen 3 PCR NOT DETECTED Nasal Parainfluen 4 PCR NOT DETECTED Nasal RSV (PCR) NOT DETECTED Nasal B.pertussis DNA PCR NOT DETECTED Nasal C.pneumoniae (PCR) NOT DETECTED Patricio Human Metapneumo PCR NOT DETECTED Nasal M.pneumoniae (PCR) NOT DETECTED Nasal SARS-CoV-2 (PCR) DETECTED A 01/24/24 20:19 WBC RBC Hgb Hct MCV MCH MCHC RDW Plt Count MPV Neut # (Auto) Lymph # (Auto) Sabine # (Auto) Eos # (Auto) Baso # (Auto) Absolute Nucleated RBC Nucleated RBC % Sodium 135 Potassium 3.7 Chloride 104 Carbon Dioxide 24 Anion Gap 7.0 BUN 6 Creatinine 0.7 Estimated GFR (MDRD) 98 Glucose 75 Calcium 9.6 Total Bilirubin 0.3 AST 23 ALT 23 Alkaline Phosphatase 69 Total Protein 7.1 Albumin 4.1 Globulin 3.0 Albumin/Globulin Ratio 1.4 Lipase 15 Urine Color Urine Clarity Urine pH Ur Specific Bailey Urine Protein Urine Glucose (UA) Urine Ketones Urine Occult Blood Urine Nitrite Urine Bilirubin Urine Urobilinogen Ur Leukocyte Esterase Ur Microscopic Review Urine Culture Comments Nasal Adenovirus (PCR) Nasal B. 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 Afebrile. No hypoxia or respiratory distress. Abdomen is soft, nontender nondistended. Bedside ultrasound reveals an intrauterine with a heart rate of approximate 163 bpm. Given IV fluids. Retroperitoneal ultrasound was ordered as the patient does have a history of ureteral stones and was having some mild left flank pain. No evidence of obstructing kidney stone. Patient is positive for COVID. Discussed the case with OB on-call, they do not recommend Paxlovid. Patient will continue Tylenol at home and follow-up with her OB tomorrow for further care. Patient counseled regarding signs and symptoms for which I believe and urgent re- evaluation would be necessary. Patient with good understanding of and agreement to plan and is comfortable going home at this time This document was made in part using voice recognition software. While efforts are made to proofread this document, sound alike and grammatical errors may occur. Departure - Departure Disposition: 01 Home, Self Care Clinical Impression: COVID Condition: Good Instructions: ED Viral Syndrome Follow-Up: Your, OB tomorrow [Other] Comments: Please follow-up with your OB for further care. You have tested positive for COVID tonight. Drink plenty of fluids and rest. You can use Tylenol as needed for pain at home. Forms: PCP List Discharge Date/Time: 01/24/24 22:03
[2024-01-24] MEDS: SODIUM CHLORIDE 0.9% 1,000 ML IV STA (20:33)
[2024-01-24 20:34] LABS: BILIRUBIN,URINE NEGATIVE (NEGATIVE); GLUCOSE, URINE (UA) NEGATIVE (NEGATIVE); KETONES,URINE (UA) NEGATIVE (NEGATIVE); LEUKOCYTE ESTERASE, URINE NEGATIVE (NEGATIVE); NITRITE,URINE NEGATIVE (NEGATIVE); OCCULT BLOOD,URINE NEGATIVE (NEGATIVE); PH,URINE 6.5 PH (5.0-7.5); PROTEIN,URINE NEGATIVE (NEGATIVE); UROBILINOGEN,URINE 0.2 (NORMAL) E.U./dL (NORMAL)
[2024-01-24 20:38] LABS: ALBUMIN 4.1 g/dL (3.2-5.5); ALBUMIN/GLOBULIN RATIO 1.4 (1.0-2.2); BILIRUBIN,TOTAL 0.3 mg/dL (0.2-1.0); CALCIUM 9.6 mg/dL (8.5-10.3); CREATININE 0.7 mg/dL (0.6-1.3); POTASSIUM 3.7 mmol/L (3.5-4.5); TOTAL PROTEIN 7.1 g/dL (6.4-8.9)
[2024-01-24 20:39] LABS: CLARITY,URINE CLEAR (CLEAR)
[2024-01-24] MEDS: ONDANSETRON 4 MG/2 ML VIAL IVP STA (21:09)
[2024-01-24] MEDS: ACETAMINOPHEN 325 MG TABLET PO STA (21:09)
[2024-01-24 21:28] LABS: B. PARAPERTUSSIS- RESP PCR PAN NOT DETECTED; B. PERTUSSIS- RESP PCR PANEL NOT DETECTED; C. PNEUMONIAE- RESP PCR PANEL NOT DETECTED; CORONAVIRUS 229E-RESP PCR NOT DETECTED; CORONAVIRUS HKU1-RESP PCR NOT DETECTED; CORONAVIRUS NL63-RESP PCR NOT DETECTED; CORONAVIRUS OC43-RESP PCR NOT DETECTED; HUMAN METAPNEUMOVIRUS NOT DETECTED; INFLUENZA A- RESP PCR PANEL NOT DETECTED; INFLUENZA B - RESP PCR PANEL NOT DETECTED; M. PNEUMONIAE- RESP PCR PANEL NOT DETECTED; PARAINFLUENZA VIRUS 1 NOT DETECTED; PARAINFLUENZA VIRUS 2 NOT DETECTED; PARAINFLUENZA VIRUS 3 NOT DETECTED; PARAINFLUENZA VIRUS 4 NOT DETECTED; RHINOVIRUS/ENTEROVIRUS NOT DETECTED; RSV- RESP PCR PANEL NOT DETECTED
[2024-01-24 21:30] LABS: SARS-CoV-2 -RESP PCR PANEL DETECTED
--- NOTE | 2024-01-24 22:14 | Ultrasound Report ---
PROCEDURE: Renal (Retroperitoneal) INDICATIONS: preg, flank pain, h/o renal stones TECHNIQUE: Real-time scanning was performed of the retroperitoneal organs, with image documentation. COMPARISON: CT abdomen/pelvis 12/20/2020. FINDINGS: Kidneys: Kidneys are normal in size. Right kidney measures 12.4 cm long; left kidney measures 11.1 cm long. Right renal cortical thickness is 1.7 cm; left renal cortical thickness is 1.6 cm. Mild ri ght hydronephrosis. No left hydronephrosis. No solid masses or nephrolithiasis. Bladder: Pre-void bladder volume is 178 mL. Post-void residual is 5 mL. Pre-void images demonstrat e no intraluminal masses or stones. On pre-void images, bilateral ureteral jets are noted with color Doppler interrogation. (Of note, ureteral jets may not be detectable in up to 25% of cases due to i nsufficient differences in specific gravity between ureteral and bladder urine). Miscellaneous: No free abdominal fluid. IMPRESSION: Mild right hydronephrosis. No renal calculus identified sonographically. Reviewed by: Jamie Fitzgerald MD on 01/24/2024 10:13 PM PDT Approved by: Jamie Fitzgerald MD on 01/24/2024 10:13 PM PDT Station ID: [id number]
== END 2024-01-24 22:03 | disposition home or self-care (01) ==
LOC: ED 19:46
DX: O98.512 Other viral diseases complicating pregnancy, second trimester (principal); U07.1 COVID-19; Z3A.18 18 weeks gestation of pregnancy; Z87.442 Personal history of urinary calculi
CPT/HCPCS: 36415; 76770; 80053; 81003; 83690; 85025; 87633; 96361; 96374; 99283; 99284; A9270; 81001; 87086